=== PATIENT | female | born 1945 | race African-American/Black ===

== ENCOUNTER 2017-03-22 15:48 | Emergency (ER) | payer OTHER ==
[~2017-03-22] VITALS: Ht 162.5 cm; Wt 90.7 kg
[~2017-03-22 15:48] MED LIST: TRAMADOL HCL50 MG PO
[2017-03-22 15:54] VITALS: BP 151/63
[2017-03-22] MEDS ORDERED: MEDROL DOSEPAK4 MG PO (17:04)
== END 2017-03-22 17:07 | disposition home or self-care (01) ==
LOC: ED 15:48
DX: T63.441A Toxic effect of venom of bees, accidental (unintentional), initial encounter (principal); Z88.0 Allergy status to penicillin; Y92.9 Unspecified place or not applicable

== ENCOUNTER 2017-03-27 16:41 | Emergency (ER) | payer OTHER ==
[~2017-03-27] VITALS: Ht 162.5 cm; Wt 90.7 kg
[~2017-03-27 16:41] MED LIST changes: +MEDROL DOSEPAK4 MG PO
[2017-03-27 16:47] VITALS: BP 131/53
[2017-03-27] MEDS ORDERED: NAPROSYN500 MG PO (18:11)
== END 2017-03-27 18:09 | disposition home or self-care (01) ==
LOC: ED 16:41
DX: T14.8XXA Other injury of unspecified body region, initial encounter (principal); M79.671 Pain in right foot; M25.511 Pain in right shoulder; M25.571 Pain in right ankle and joints of right foot; M25.561 Pain in right knee; R03.0 Elevated blood-pressure reading, without diagnosis of hypertension; Z88.0 Allergy status to penicillin; W01.0XXA Fall on same level from slipping, tripping and stumbling without subsequent striking against object, initial encounter; Y93.89 Activity, other specified; Y92.89 Other specified places as the place of occurrence of the external cause; Y99.8 Other external cause status

== ENCOUNTER 2017-04-03 10:02 | Emergency (ER) | payer OTHER ==
[~2017-04-03 10:02] MED LIST changes: +NAPROSYN500 MG PO
[2017-04-03 10:07] VITALS: BP 176/90
[2017-04-03 10:29] LABS: BILIRUBIN NEGATIVE (NEGATIVE); BLOOD 1+ (NEGATIVE); CLARITY SL CLOUDY (CLEAR); COLOR YELLOW (YELLOW); GLUCOSE NEGATIVE (NEGATIVE); KETONE NEGATIVE (NEGATIVE); LEUKO ESTERASE 3+ (NEGATIVE); NITRITE NEGATIVE (NEGATIVE); PH 6.5 (5.0-9.0); UROBILINOGEN 0.2 E.U./dl (0.2-1.0)
[2017-04-03 10:36] LABS: BACTERIA 1+; WBC TNTC wbc/hpf (0-5)
[2017-04-03] MEDS ORDERED: PYRIDIUM200 M1 PO (10:45)
[2017-04-03] MEDS ORDERED: Bactrim DS PO (10:45)
== END 2017-04-03 12:11 | disposition home or self-care (01) ==
LOC: ED 10:02
PROVIDERS: Nurse Practitioner Family
DX: N30.01 Acute cystitis with hematuria (principal); Z88.0 Allergy status to penicillin; Z90.49 Acquired absence of other specified parts of digestive tract; I10 Essential (primary) hypertension; Z90.710 Acquired absence of both cervix and uterus

== ENCOUNTER 2017-04-16 12:52 | Emergency (ER) | payer OTHER, MEDICAID ==
[~2017-04-16] VITALS: Ht 162.5 cm; Wt 92.5 kg
[~2017-04-16 12:52] MED LIST changes: +Bactrim DS PO; +PYRIDIUM200 M1 PO
[2017-04-16 12:58] VITALS: BP 180/82
[2017-04-16 13:26] LABS: BILIRUBIN NEGATIVE (NEGATIVE); BLOOD TRACE-INTACT (NEGATIVE); CLARITY CLEAR (CLEAR); COLOR YELLOW (YELLOW); GLUCOSE NEGATIVE (NEGATIVE); KETONE NEGATIVE (NEGATIVE); LEUKO ESTERASE 1+ (NEGATIVE); NITRITE NEGATIVE (NEGATIVE); PH 6.5 (5.0-9.0); UROBILINOGEN 0.2 E.U./dl (0.2-1.0)
[2017-04-16 13:41] LABS: BACTERIA TRACE
[2017-04-16] MEDS ORDERED: CIPRO500 MG PO (13:57)
== END 2017-04-16 14:29 | disposition home or self-care (01) ==
LOC: ED 12:52
PROVIDERS: Nurse Practitioner Family
DX: S91.332A Puncture wound without foreign body, left foot, initial encounter (principal); N39.0 Urinary tract infection, site not specified; R03.0 Elevated blood-pressure reading, without diagnosis of hypertension; Z90.710 Acquired absence of both cervix and uterus; Z90.49 Acquired absence of other specified parts of digestive tract; Z88.0 Allergy status to penicillin; W22.8XXA Striking against or struck by other objects, initial encounter; Y93.89 Activity, other specified; Y92.89 Other specified places as the place of occurrence of the external cause; Y99.9 Unspecified external cause status

== ENCOUNTER → 2017-08-03 | Outpatient (CLI) | payer OTHER ==
[~2017-08-03] MED LIST changes: +CIPRO500 MG PO
[2017-08-03 13:09] LABS: HEMATOCRIT 34.8 % (37.0-47.0); HEMOGLOBIN 11.4 g/dl (12.0-16.0); MEAN CELL VOLUME 97.5 fl (81.0-99.0); MEAN CORPUSCULAR HGB 31.9 pg (27.0-31.0); MEAN CORPUSCULAR HGB CONC 32.8 g/dl (33.0-37.0); MEAN PLATELET VOLUME 10.7 fl (9.6-12.3); PLATELET COUNT AUTOMATED 226 10*3/uL (130-400); RED BLOOD COUNT 3.57 10*6/uL (4.10-5.10); WHITE BLOOD COUNT 15.8 10*3/uL (4.8-10.8)
[2017-08-03 13:28] LABS: ALBUMIN 2.9 gm/dl (3.1-4.5); BUN 16 mg/dl (7-24); CHLORIDE 110 mmol/L (98-107); CHOLESTEROL 188 mg/dL (<200); CREATININE 0.83 mg/dL (0.55-1.02); POTASSIUM 3.6 mmol/L (3.5-5.1); SGOT/AST 19 IU/L (3-35); SGPT/ALT 21 U/L (12-78); SODIUM 143 mmol/L (136-145); TOTAL PROTEIN 7.3 gm/dL (6.4-8.2); TRIGLYCERIDES 107 mg/dl (<150); VLDL CHOLESTEROL 21 mg/dL (6-40)
[2017-08-03 13:37] LABS: ALKALINE PHOSPHATASE 138 U/L (45-117); HDL CHOLESTEROL 76 mg/dl (40-60); LDL CHOLESTEROL 91 mg/dL (9-159)
[2017-08-03 13:53] LABS: BASOPHILS 1 % (0-1); HOWELL-JOLLY BODIES FEW; PLATELET SUFFICIENCY NORMAL (NORMAL); POLYCHROMASIA SLIGHT; TARGET CELLS FEW; TOTAL CELLS COUNTED 100 #CELLS
[2017-08-05 12:05] LABS: HIV-1 RNA BY PCR <20 (.)
== END | disposition home or self-care (01) ==
LOC: RAD 11:00 → LAB 11:06
PROVIDERS: Internal Medicine
DX: Z13.820 Encounter for screening for osteoporosis (principal); M25.562 Pain in left knee; N95.9 Unspecified menopausal and perimenopausal disorder; I10 Essential (primary) hypertension; E78.2 Mixed hyperlipidemia; M81.0 Age-related osteoporosis without current pathological fracture; B20 Human immunodeficiency virus [HIV] disease; M17.12 Unilateral primary osteoarthritis, left knee; Z90.710 Acquired absence of both cervix and uterus

== ENCOUNTER → 2017-08-20 | Day surgery (SDC) | payer OTHER ==
[~2017-08-20] VITALS: Ht 162.5 cm; Wt 104.3 kg
[~2017-08-20] MED LIST changes: +ATRIPLA TABLET1 EACH PO; +LIPITOR40 MG PO; +VITAMIN D5000 UNIT PO
--- NOTE | ~2017-08-20 | PROC NOTE ---
[place], [place] PROCEDURE NOTE NAME: DAVID AMAYA UNIT #: [id number] ROOM: DOCTOR: CINDY LIMON MD BIRTHDATE: [birth year] DOS: 08/20/2017 PREOPERATIVE DIAGNOSIS: History of colonic polyps. POSTOPERATIVE DIAGNOSIS: Normal colon. PROCEDURE: Colonoscopy. ENDOSCOPIST: Cindy Limon MD METAL OR WOOD BLOCKER: TEA. ANESTHESIA: MAC. INDICATIONS: This is a 72-year-old lady who has a history of previous polyps that were removed on colonoscopies in the past, who is here for a colonoscopy. The procedure and its complications were explained to the patient in detail preoperatively. Complications that were discussed included but were not limited to bleeding, missed lesions and colon perforation. She agreed to proceed. DESCRIPTION OF PROCEDURE: After identifying the patient, the patient was brought to the operating suite and laid in the left lateral position. After time-out procedure was called, IV sedation was administered by the anesthesia team. A digital rectal exam was performed, which was within normal limits. An adult colonoscope was now introduced into the anal canal and advanced sequentially into the rectum, sigmoid colon, descending colon, transverse colon and ascending colon right up to the cecum. Upon reaching the cecum, the scope was withdrawn. Total withdrawal time was approximately 7 minutes. The entire colon was carefully inspected, but there were no polyps or any other lesions that could be visualized. There were uncomplicated internal hemorrhoids that were visualized in the rectum. The scope was then removed and the patient was brought back to the recovery room in stable fashion. There were no complications. Dr. Cindy Limon, the attending endoscopist, was present throughout the operating case. Cindy Limon MD CM:PROCNOTE:PROCEDURE NOTE [id number] CINDY LIMON MD
[2017-08-20 07:10] VITALS: BP 120/72
[2017-08-20 08:24] VITALS: BP 150/87
[2017-08-20 08:36] VITALS: BP 162/84
[2017-08-20 08:51] VITALS: BP 160/72
== END ==
LOC: SDC 08-17 15:30
DX: Z09 Encounter for follow-up examination after completed treatment for conditions other than malignant neoplasm (principal); Z86.010 Personal history of colon polyps; K64.8 Other hemorrhoids; J45.909 Unspecified asthma, uncomplicated; E11.9 Type 2 diabetes mellitus without complications; Z90.710 Acquired absence of both cervix and uterus; Z96.652 Presence of left artificial knee joint; Z98.890 Other specified postprocedural states; Z79.899 Other long term (current) drug therapy; E66.01 Morbid (severe) obesity due to excess calories; Z68.43 Body mass index [BMI] 50.0-59.9, adult; Z86.718 Personal history of other venous thrombosis and embolism
CPT/HCPCS: 00811; G0105

== ENCOUNTER → 2017-09-02 | Outpatient (CLI) | payer OTHER | END | disposition home or self-care (01) | LOC: RAD 12:25 | DX: M17.11 Unilateral primary osteoarthritis, right knee (principal); M47.896 Other spondylosis, lumbar region; M47.897 Other spondylosis, lumbosacral region; M25.512 Pain in left shoulder; G89.29 Other chronic pain; M54.5 Low back pain ==

== ENCOUNTER 2017-12-01 18:48 | Emergency (ER) | payer OTHER ==
[~2017-12-01] VITALS: Wt 103.9 kg
[2017-12-01 19:36] LABS: HEMATOCRIT 37.6 % (37.0-47.0); HEMOGLOBIN 12.4 g/dl (12.0-16.0); MEAN CELL VOLUME 97.9 fl (81.0-99.0); MEAN CORPUSCULAR HGB 32.3 pg (27.0-31.0); MEAN PLATELET VOLUME 11.5 fl (9.6-12.3); PLATELET COUNT AUTOMATED 246 10*3/uL (130-400); RED BLOOD COUNT 3.84 10*6/uL (4.10-5.10); RED CELL DISTRI WIDTH 14.6 % (0-14.5); WHITE BLOOD COUNT 17.2 10*3/uL (4.8-10.8)
[2017-12-01 20:31] LABS: ALBUMIN 3.2 gm/dl (3.1-4.5); BUN 19 mg/dl (7-24); CHLORIDE 110 mmol/L (98-107); POTASSIUM 4.1 mmol/L (3.5-5.1); SGOT/AST 22 IU/L (3-35); SGPT/ALT 22 U/L (12-78); SODIUM 142 mmol/L (136-145); TOTAL PROTEIN 7.6 gm/dL (6.4-8.2)
[2017-12-01 20:32] LABS: BASOPHILS 1 % (0-1); PLATELET SUFFICIENCY NORMAL (NORMAL); TARGET CELLS FEW; TOTAL CELLS COUNTED 100 #CELLS
[2017-12-01 20:37] LABS: ALKALINE PHOSPHATASE 138 U/L (45-117)
[2017-12-01 20:45] LABS: BILIRUBIN NEGATIVE (NEGATIVE); BLOOD NEGATIVE (NEGATIVE); CLARITY SL CLOUDY (CLEAR); COLOR YELLOW (YELLOW); GLUCOSE NEGATIVE (NEGATIVE); KETONE NEGATIVE (NEGATIVE); LEUKO ESTERASE NEGATIVE (NEGATIVE); NITRITE NEGATIVE (NEGATIVE); SPECIFIC GRAVITY <= 1.005 (1.005-1.030); UROBILINOGEN 0.2 E.U./dl (0.2-1.0)
[2017-12-01 20:50] LABS: BACTERIA TRACE; EPITHELIAL CELLS 0-2; WBC 0-2 wbc/hpf (0-5)
[2017-12-01 22:45] VITALS: BP 158/68
== END 2017-12-01 23:35 | disposition home or self-care (01) ==
LOC: ED 18:48
PROVIDERS: Physician Assistant
DX: M54.5 Low back pain (principal); Z90.710 Acquired absence of both cervix and uterus; Z90.49 Acquired absence of other specified parts of digestive tract; Z79.899 Other long term (current) drug therapy; Z88.0 Allergy status to penicillin

== ENCOUNTER → 2017-12-08 | Outpatient (CLI) | payer OTHER ==
[2017-12-09 21:03] LABS: HIV-1 RNA BY PCR 40 (.); LOG10 HIV-1 RNA 1.602 (.)
== END | disposition home or self-care (01) ==
LOC: LAB 02:57 → ORTHO 02:57 → LAB 10:33 → ORTHO 21:55
PROVIDERS: Orthopaedic Surgery
DX: B20 Human immunodeficiency virus [HIV] disease (principal)

== ENCOUNTER → 2017-12-14 | Outpatient (CLI) | payer OTHER | END | disposition home or self-care (01) | LOC: US 12-01 16:00 | DX: R10.9 Unspecified abdominal pain (principal) ==

== ENCOUNTER → 2017-12-24 | Outpatient (CLI) | payer OTHER | END | disposition home or self-care (01) | LOC: MRI 10:00 | DX: M75.101 Unspecified rotator cuff tear or rupture of right shoulder, not specified as traumatic (principal) ==

== ENCOUNTER → 2018-05-10 | Outpatient (CLI) | payer OTHER | END | disposition home or self-care (01) | LOC: US 11:00 | DX: E04.2 Nontoxic multinodular goiter (principal); M79.89 Other specified soft tissue disorders ==

== ENCOUNTER → 2018-07-18 | Outpatient (CLI) | payer OTHER ==
[~2018-07-18] MED LIST changes: +COREG3.125 MG PO; +HYDROCODONE-AC1 EAC1 PO; +LASIX20 MG PO; +LEVAQUIN500 M2 PO; +LEVAQUIN750 M1 PO; +LISINOPRIL10 M1 PO; +OYSTER SHELL C1 EAC2 PO; +OYSTER SHELL C1 EAC6 PO; +PREDNISONE10 MG PO; +PROAIR HFA8.5 GM INH; +TAMIFLU 75MG CA75 MG PO; +TESSALON PERLE100 M1 PO; +VITAMIN D32000 UNI1 PO; +ZITHROMAX250 MG PO; +ZOFRAN4 MG PO
== END | disposition home or self-care (01) ==
LOC: US 13:05
DX: I82.409 Acute embolism and thrombosis of unspecified deep veins of unspecified lower extremity (principal); M79.89 Other specified soft tissue disorders

== ENCOUNTER 2018-08-28 17:34 | Inpatient (IN) | payer OTHER ==
[~2018-08-28] VITALS: Ht 162.6 cm; Wt 100.9 kg
[~2018-08-28 17:34] MED LIST changes: -HYDROCODONE-AC1 EAC1 PO; -LEVAQUIN500 M2 PO; -LEVAQUIN750 M1 PO; -PREDNISONE10 MG PO; -PROAIR HFA8.5 GM INH; -TAMIFLU 75MG CA75 MG PO; -TESSALON PERLE100 M1 PO; -ZOFRAN4 MG PO
[2018-08-28 17:41] VITALS: BP 193/46
[2018-08-28 18:24] LABS: HEMATOCRIT 37.6 % (37.0-47.0); HEMOGLOBIN 12.3 g/dl (12.0-16.0); MEAN CELL VOLUME 97.4 fl (81.0-99.0); MEAN CORPUSCULAR HGB 31.9 pg (27.0-31.0); MEAN CORPUSCULAR HGB CONC 32.7 g/dl (33.0-37.0); MEAN PLATELET VOLUME 11.3 fl (9.6-12.3); PLATELET COUNT AUTOMATED 149 10*3/uL (130-400); RED BLOOD COUNT 3.86 10*6/uL (4.10-5.10); WHITE BLOOD COUNT 16.9 10*3/uL (4.8-10.8)
[2018-08-28 18:47] LABS: ALKALINE PHOSPHATASE 118 U/L (45-117); BUN 22 mg/dl (7-24); CHLORIDE 106 mmol/L (98-107); CREATININE 1.05 mg/dL (0.55-1.02); LIPASE 164 U/L (73-393); POTASSIUM 3.3 mmol/L (3.5-5.1); SGOT/AST 18 IU/L (3-35); SGPT/ALT 19 U/L (12-78); SODIUM 141 mmol/L (136-145); TOTAL PROTEIN 7.7 gm/dL (6.4-8.2)
--- NOTE | 2018-08-28 19:00 | NUR ---
TEMP 100.1, CRYSTAL NOTIFIED PT STATES SHE HAS BODYACHES.
--- NOTE | 2018-08-28 19:01 | NUR ---
DAUGHTER IN LAW STATES TO CALL HER IF NEEDED. [phone]
[2018-08-28 19:11] LABS: PLATELET SUFFICIENCY NORMAL (NORMAL); TOTAL CELLS COUNTED 100 #CELLS
[2018-08-28 19:12] LABS: TARGET CELLS FEW
[2018-08-28] MEDS ORDERED: ZOFRAN4 MG PO (19:59)
[2018-08-28] MEDS ORDERED: TESSALON PERLE100 M1 PO (19:59)
[2018-08-28] MEDS ORDERED: PROAIR HFA8.5 GM INH (19:59)
[2018-08-28 20:43] VITALS: BP 126/47
[2018-08-28 20:51] LABS: BILIRUBIN NEGATIVE (NEGATIVE); BLOOD TRACE-INTACT (NEGATIVE); CLARITY CLEAR (CLEAR); COLOR YELLOW (YELLOW); GLUCOSE NEGATIVE (NEGATIVE); KETONE NEGATIVE (NEGATIVE); LEUKO ESTERASE NEGATIVE (NEGATIVE); NITRITE NEGATIVE (NEGATIVE); PH 5.5 (5.0-9.0); SPECIFIC GRAVITY <= 1.005 (1.005-1.030); UROBILINOGEN 0.2 E.U./dl (0.2-1.0)
--- NOTE | 2018-08-28 21:02 | NUR ---
DAUGHTER PAULA PHONE NUMBER [phone] - OTHER DAUGHTER'S NUMBER
[2018-08-28 21:11] LABS: BACTERIA 1+; EPITHELIAL CELLS 0-2; RBC 0-2 rbc/hpf (0-2); WBC 0-2 wbc/hpf (0-5)
[2018-08-28 21:46] VITALS: BP 138/48
[2018-08-28 22:26] VITALS: BP 142/40
--- NOTE | 2018-08-28 22:26 | NUR ---
Time: 2225 A 73 year old FEMALE admitted to 4E under services of FLEX ZUNIGA DO. Pt. arrived via wheel chair from ER. Chief complaint: CHILLS/SORETHROAT. JARED MAX
--- NOTE | 2018-08-28 22:51 | NUR ---
PATIENT MEDICATED WITH TYLENOL FOR C/O HEADACHE. WILL MONITOR
--- NOTE | 2018-08-28 22:59 | NUR ---
INFORMED THAT HOME MEDICATIONS ARE VERIFIED
--- NOTE | 2018-08-28 23:51 | NUR ---
TYLENOL EFFECTIVE FOR HEADACHE
--- NOTE | 2018-08-29 00:30 | NUR ---
INFORMED THAT PATIENT AWOKEN AND HAD INTENSE SOB, LABOURED BREATHING NOTED WITH AUDIBLE WHEEZING AND DIM T/O LUNG FIELD P.OX STATING 93-94% ROOM AIR. STATES TO PLACE DUONEBS Q4HR PRN. PATIENT PLACED ON 1LPM PER COMFORT. RESP THERAPIST CALLED FOR TREATMENT.
--- NOTE | 2018-08-29 01:00 | NUR ---
DUONEB EFFECITVE. PATIENT RESTING IN BED, RESP ARE ERND ON ROOM AIR P.OX 98% ON 1LPM NC.
--- NOTE | 2018-08-29 02:45 | NUR ---
24 HR chart check completed.
[2018-08-29 06:24] LABS: HEMATOCRIT 34.9 % (37.0-47.0); HEMOGLOBIN 11.3 g/dl (12.0-16.0); MEAN CELL VOLUME 97.5 fl (81.0-99.0); MEAN CORPUSCULAR HGB 31.6 pg (27.0-31.0); MEAN CORPUSCULAR HGB CONC 32.4 g/dl (33.0-37.0); MEAN PLATELET VOLUME 11.2 fl (9.6-12.3); PLATELET COUNT AUTOMATED 147 10*3/uL (130-400); RED BLOOD COUNT 3.58 10*6/uL (4.10-5.10); RED CELL DISTRI WIDTH 14.9 % (0-14.5); WHITE BLOOD COUNT 15.4 10*3/uL (4.8-10.8)
[2018-08-29 06:42] LABS: ALBUMIN 2.6 gm/dl (3.1-4.5); ALKALINE PHOSPHATASE 108 U/L (45-117); BUN 16 mg/dl (7-24); CHLORIDE 112 mmol/L (98-107); CHOLESTEROL 204 mg/dL (<200); FREE T4 1.12 ng/dl (0.76-1.46); HDL CHOLESTEROL 48 mg/dl (40-60); LDL CHOLESTEROL 141 mg/dL (9-159); SGOT/AST 15 IU/L (3-35); SGPT/ALT 16 U/L (12-78); SODIUM 143 mmol/L (136-145); TOTAL PROTEIN 7.1 gm/dL (6.4-8.2); TRIGLYCERIDES 77 mg/dl (<150); VLDL CHOLESTEROL 15 mg/dL (6-40)
[2018-08-29 06:47] LABS: THYROID STIM HORMONE (HS) 0.382 uIU/ml (0.358-4.75)
[2018-08-29 07:30] LABS: ATYPICAL LYMPHS 1 % (0-0); PLATELET SUFFICIENCY NORMAL (NORMAL); TOTAL CELLS COUNTED 100 #CELLS
[2018-08-29 07:31] LABS: TARGET CELLS MODERATE
[2018-08-29 07:54] LABS: VITAMIN D, 25-HYDROXY 23.5 ng/mL (30-100)
[2018-08-29 08:00] VITALS: BP 155/63
--- NOTE | 2018-08-29 08:01 | NUR ---
PT COMPLAINING OF HARSH HACKING COUGH AND SEVERE NASAL CONGESTION. ORDERS RECEIVED.
--- NOTE | 2018-08-29 09:00 | NUR ---
Parliamentary Librarian in to talk to patient. Patient states lives at home with great grandson. There are few steps in the home. Physician: mary cobos [facility]acy: [facility] Home health services: none Patient's level of ADLs: INDEPENDENT Patient has working utilities: all working DME: none Follow-up physician's appointment after d/c: will be made by hospitalist nurse director upon discharge Does patient want to access PORTAL?: no Discharge plan discussed with patient, patient lives at home with great grandson, she states she is independent in adls and ambulation, drives, patient states she will be going home when able and denies any home needs. ALAVRO ABEBE
--- NOTE | 2018-08-29 09:39 | NUR ---
MEDICATED WITH TYLENOL FOR COMPLAINTS OF HEADACHE. ALSO PROVIDED PT TESSALON EMMANUEL FOR COUGH. WILL MONITOR FOR EFFECTIVENESS.
--- NOTE | 2018-08-29 10:26 | NUR ---
DR SHIPLEY'S ANSWERING SERVICE NOTIFIED OF NEW CONSULT.
--- NOTE | 2018-08-29 11:00 | NUR ---
PT STATES EARLIER TYLENOL AND TESSALON PEARLS EFFECTIVE. RESTING MORE COMFORTABLY.
[2018-08-29 12:00] VITALS: BP 124/54
--- NOTE | 2018-08-29 13:58 | NUR ---
PHYSICAL THERAPY Patient reports she has no PT needs. Reports being (I) in room with functional mobility. Declines PT services. Thank you for this referral. Laury Wilkins,PT
--- NOTE | 2018-08-29 16:25 | NUR ---
DR SHILPEY IN TO SEE PT AT THIS TIME.
[2018-08-29 18:00] VITALS: BP 164/70
--- NOTE | 2018-08-29 18:15 | NUR ---
PT PLACED IN PRIVATE ROOM FOR DROPLET PRECAUTIONS PER ORDER.
[2018-08-29 20:00] VITALS: BP 145/66
--- NOTE | 2018-08-29 21:33 | NUR ---
MEDICATED WITH PRN TYLENOL FOR C/O HEADACHE AND TESSALON FOR C/O COUGH, WILL MONITOR
[2018-08-30] VITALS: BP 150/65
--- NOTE | 2018-08-30 04:34 | NUR ---
24 HR chart check completed.
--- NOTE | 2018-08-30 06:06 | NUR ---
PATIENT RESTING IN BED WATCHING TV. NO NEEDS MADE. DENIES PAIN AT THIS TIME. BED IN LOWEST POSITION, CALL LIGHT IN REACH
[2018-08-30 07:08] LABS: HEMATOCRIT 35.5 % (37.0-47.0); HEMOGLOBIN 11.6 g/dl (12.0-16.0); MEAN CELL VOLUME 97.5 fl (81.0-99.0); MEAN CORPUSCULAR HGB 31.9 pg (27.0-31.0); MEAN CORPUSCULAR HGB CONC 32.7 g/dl (33.0-37.0); MEAN PLATELET VOLUME 11.3 fl (9.6-12.3); PLATELET COUNT AUTOMATED 134 10*3/uL (130-400); RED BLOOD COUNT 3.64 10*6/uL (4.10-5.10); RED CELL DISTRI WIDTH 14.9 % (0-14.5); WHITE BLOOD COUNT 14.8 10*3/uL (4.8-10.8)
[2018-08-30 07:30] LABS: BASOPHILS 1 % (0-1); PLATELET SUFFICIENCY NORMAL (NORMAL); TOTAL CELLS COUNTED 100 #CELLS
[2018-08-30 07:37] LABS: BUN 14 mg/dl (7-24); CHLORIDE 108 mmol/L (98-107); SODIUM 140 mmol/L (136-145)
[2018-08-30 07:38] LABS: CREATININE 0.87 mg/dL (0.55-1.02)
[2018-08-30 08:00] VITALS: BP 138/63
[2018-08-30] MEDS ORDERED: TAMIFLU 75MG CA75 MG PO (08:26)
[2018-08-30] MEDS ORDERED: LEVAQUIN750 M1 PO (08:26)
--- NOTE | 2018-08-30 08:51 | NUR ---
MEDICATED WITH TYLENOL FOR COMPLAINTS OF HEADACHE, ALSO TESSALON PEARLS FOR COUGH. WILL MONITOR FOR EFFECTIVENESS.
--- NOTE | 2018-08-30 09:00 | NUR ---
case management visits with patient, patient states she will be going home when able and denies any home needs
--- NOTE | 2018-08-30 13:45 | NUR ---
Discharge instructions reviewed with patient/family. Patient receptive and verbalizes understanding. Follow-up care arranged. Written instructions given to patient/family. IV site removed. Pt transported tolobby via wheelchair. ANN ZARATE
[2018-10-15] MEDS ORDERED: PREDNISONE10 MG PO (11:06)
[2018-10-15] MEDS ORDERED: LASIX20 MG PO (11:06)
[2018-10-15] MEDS ORDERED: LEVAQUIN500 M2 PO (11:10)
[2019-01-20] MEDS ORDERED: HYDROCODONE-AC1 EAC1 PO (14:54)
== END 2018-08-30 13:45 | disposition home or self-care (01) | DRG 871 ==
LOC: ED 17:34 → 4E 21:35 → EDHOLD 21:35 → 4E 22:04
PROVIDERS: Internal Medicine; Physician Assistant; Student in an Organized Health Care Education/Training Program; ADMIT Internal Medicine
DX: A41.9 Sepsis, unspecified organism (principal); E43 Unspecified severe protein-calorie malnutrition; N17.9 Acute kidney failure, unspecified; E86.0 Dehydration; E87.6 Hypokalemia; D64.9 Anemia, unspecified; E53.8 Deficiency of other specified B group vitamins; E55.9 Vitamin D deficiency, unspecified; J45.20 Mild intermittent asthma, uncomplicated; I16.0 Hypertensive urgency; E11.9 Type 2 diabetes mellitus without complications; E78.5 Hyperlipidemia, unspecified; I10 Essential (primary) hypertension; E66.9 Obesity, unspecified; Z96.652 Presence of left artificial knee joint; Z68.38 Body mass index [BMI] 38.0-38.9, adult; Z88.0 Allergy status to penicillin; Z90.49 Acquired absence of other specified parts of digestive tract; Z90.710 Acquired absence of both cervix and uterus; Z90.81 Acquired absence of spleen; Z87.891 Personal history of nicotine dependence; Z80.8 Family history of malignant neoplasm of other organs or systems; Z86.718 Personal history of other venous thrombosis and embolism; Z79.899 Other long term (current) drug therapy; Z21 Asymptomatic human immunodeficiency virus [HIV] infection status

== ENCOUNTER → 2018-09-28 | Outpatient (CLI) | payer OTHER ==
[~2018-09-28] MED LIST changes: +HYDROCODONE-AC1 EAC1 PO; +LEVAQUIN500 M2 PO; +LEVAQUIN750 M1 PO; +PREDNISONE10 MG PO; +PROAIR HFA8.5 GM INH; +TAMIFLU 75MG CA75 MG PO; +TESSALON PERLE100 M1 PO; +ZOFRAN4 MG PO
== END | disposition home or self-care (01) ==
LOC: ORTHO 02:04
DX: M54.2 Cervicalgia (principal)

== ENCOUNTER → 2018-11-01 | Outpatient (CLI) | payer OTHER | END | disposition home or self-care (01) | LOC: US 16:02 | DX: I82.401 Acute embolism and thrombosis of unspecified deep veins of right lower extremity (principal); R60.0 Localized edema; R06.02 Shortness of breath ==

== ENCOUNTER 2019-03-09 13:47 | Inpatient (IN) | payer MEDICARE, OTHER ==
[2019-03-09] VITALS (7 sets, daily range): BP systolic 141–157; BP diastolic 48–71
[~2019-03-09] VITALS: Ht 162.5 cm; Wt 98.4 kg
[2019-03-09 15:05] LABS: HEMATOCRIT 38.3 % (37.0-47.0); HEMOGLOBIN 12.6 g/dl (12.0-16.0); MEAN CELL VOLUME 97.7 fl (81.0-99.0); MEAN CORPUSCULAR HGB 32.1 pg (27.0-31.0); MEAN CORPUSCULAR HGB CONC 32.9 g/dl (33.0-37.0); MEAN PLATELET VOLUME 11.3 fl (9.6-12.3); PLATELET COUNT AUTOMATED 176 10*3/uL (130-400); RED BLOOD COUNT 3.92 10*6/uL (4.10-5.10); RED CELL DISTRI WIDTH 14.6 % (0-14.5); WHITE BLOOD COUNT 13.9 10*3/uL (4.8-10.8)
[2019-03-09 15:18] LABS: ACT PARTIAL THROMBO TIME 25.8 SECONDS (20.0-32.1)
[2019-03-09 15:23] LABS: ALKALINE PHOSPHATASE 130 U/L (45-117); BUN 13 mg/dl (7-24); CHLORIDE 111 mmol/L (98-107); CREATININE 0.84 mg/dL (0.55-1.02); LIPASE 205 U/L (73-393); POTASSIUM 3.2 mmol/L (3.5-5.1); SGOT/AST 18 IU/L (3-35); SGPT/ALT 18 U/L (12-78); SODIUM 141 mmol/L (136-145); TOTAL PROTEIN 7.1 gm/dL (6.4-8.2)
[2019-03-09 15:32] LABS: TOTAL CELLS COUNTED 100 #CELLS
[2019-03-09 15:33] LABS: TARGET CELLS FEW
[2019-03-09 15:34] LABS: MORPHOLOGY COMMENT COMMENT:; PLATELET SUFFICIENCY NORMAL (NORMAL)
[2019-03-09] MEDS ORDERED: LISINOPRIL20 MG PO (17:14)
--- NOTE | 2019-03-09 19:45 | NUR ---
A 73, admitted to , under the services of PHILLY Lin DO with a diagnosis of APPENDECTOMY. Chief complaint is S/P APPENDECTOMY. Patient arrived via stretcher from ER. Monitor applied. Initial assessment completed. Vital signs taken and recorded. PHILLY LIN DO notified of admission to the unit. Orders received. See assessment for past medical history, medications and allergies. Patient and/or family oriented to unit. [facility] visitation policy reviewed. Clothing/patient valuable form completed. RICHAR VARNER
--- NOTE | 2019-03-09 20:23 | NUR ---
PATIENT MEDICATED WITH MORPHINE PER PRN ORDER FOR C/O LOWER ABDOMINAL PAIN. RATED PAIN A 10/10 WITH 10 BEING THE WORST. SEE EMAR. REINFORCED USE OF CALL LIGHT. DTR AT BEDSIDE.
--- NOTE | 2019-03-09 21:00 | NUR ---
PATIENT PLACED ON HYPOTHERMIA BLANKET. SPAKE WITH RESIDENT ABOUT LOW TEMPS 94.8 RECTAL.
--- NOTE | 2019-03-09 21:15 | NUR ---
PATIENT RESTING QUIETLY. DTR AT BEDSIDE. PERMISSION FROM ACCOUNTS PAYABLE SPECIALIST RECEIVED FOR DTR TO STAY WITH PATIENT. DTR HAD A VERY CALMING EFFECT ON PATIENT AND INCREASED HER LEVEL OF COMFORT. PATIENT WAS ANXIOUS DUE HER LOW TEMP AND BEING ON WARMING BLANKET
[2019-03-10] VITALS: BP 148/61
--- NOTE | 2019-03-10 03:00 | NUR ---
HYPOTHERMIA BLANKET PLACED ON MONITOR. TEMP NOW 99.2
--- NOTE | 2019-03-10 03:08 | NUR ---
PATIENT MEDICATED SLOWLY WITH MORPHINE FOR C/O SURGICAL PAIN. RATED PAIN A 7/10 WITH 10 BEING THE WORST. SEE EMAR. REINFORCED USE OF CALL LIGHT.
[2019-03-10 03:52] LABS: BILIRUBIN NEGATIVE (NEGATIVE); BLOOD NEGATIVE (NEGATIVE); CLARITY CLEAR (CLEAR); COLOR YELLOW (YELLOW); GLUCOSE NEGATIVE (NEGATIVE); KETONE NEGATIVE (NEGATIVE); LEUKO ESTERASE NEGATIVE (NEGATIVE); NITRITE NEGATIVE (NEGATIVE); PH 6.5 (5.0-9.0); UROBILINOGEN 0.2 E.U./dl (0.2-1.0)
[2019-03-10 04:02] LABS: BACTERIA TRACE; WBC 0-2 wbc/hpf (0-5)
--- NOTE | 2019-03-10 04:30 | NUR ---
PATIENT RESTING QUIETLY . NO FURTHER C/O VOICED.
[2019-03-10 06:30] LABS: HEMATOCRIT 36.4 % (37.0-47.0); HEMOGLOBIN 12.1 g/dl (12.0-16.0); MEAN CELL VOLUME 95.8 fl (81.0-99.0); MEAN CORPUSCULAR HGB 31.8 pg (27.0-31.0); MEAN CORPUSCULAR HGB CONC 33.2 g/dl (33.0-37.0); MEAN PLATELET VOLUME 11.7 fl (9.6-12.3); PLATELET COUNT AUTOMATED 179 10*3/uL (130-400); RED CELL DISTRI WIDTH 14.3 % (0-14.5); WHITE BLOOD COUNT 14.5 10*3/uL (4.8-10.8)
[2019-03-10 06:37] LABS: BUN 9 mg/dl (7-24); CHLORIDE 111 mmol/L (98-107); CREATININE 0.78 mg/dL (0.55-1.02); POTASSIUM 3.7 mmol/L (3.5-5.1); SODIUM 139 mmol/L (136-145)
[2019-03-10 07:00] LABS: ATYPICAL LYMPHS 4 % (0-0); TOTAL CELLS COUNTED 100 #CELLS
[2019-03-10 07:01] LABS: PLATELET SUFFICIENCY NORMAL (NORMAL)
[2019-03-10 07:02] LABS: BURR CELLS FEW
[2019-03-10 07:03] LABS: ROULEAUX MODERATE
--- NOTE | 2019-03-10 07:10 | NUR ---
DAVID AMAYA [id number] Please refer to the physician's history and physical for past medical history, comorbid conditions, and allergies. Diagnosis: APPENDICITIS Abdoul Score: 17,AT RISK WOUND DESCRIPTIONS: Wound Number: 1 Location of the wound: umbilicus Type of wound: surgical Thickness: Partial Size: 0.3cm x 3.5cm x <0.1cm Tunneling: none Undermining: none Sinus Tract: none Presence of Exudate: none Amount: None Color: Brown Odor: None Periwound Skin Appearance: Normal Wound edges: approximated with glue Pain (associated with wound): none at time of assessment How does patient state this happened? pt stated she had surgery yesterday Wound Number: 2 Location of the wound: left middle abdomen Type of wound: surgical Thickness: Partial Size: 0.5cm x 2.8cm x <0.1cm Tunneling: none Undermining: none Sinus Tract: none Presence of Exudate: none Amount: None Color: Brown Odor: None Periwound Skin Appearance: Normal Wound edges: approximated with glue Pain (associated with wound): none at time of assessment How does patient state this happened? pt stated she had surgery yesterday Wound Number: 3 Location of the wound: middle of lower abdomen Type of wound: surgical Thickness: Partial Size: 0.5cm x 1.0cm x <0.1cm Tunneling: none Undermining: none Sinus Tract: none Presence of Exudate: none Amount: None Color: Brown Odor: None Periwound Skin Appearance: Normal Wound edges: approximated with glue Pain (associated with wound): none at time of assessment How does patient state this happened? pt stated she had surgery yesterday Surface the patient is resting on: Isoflex SKIN PREVENTION RECOMMENDATION: 1. Pressure redistribution support surface as appropriate 2. Elevate heels 3. Remove boots/TEDS every shift and reapply 4. Head of bed 30 degrees as tolerated 5. Assess nutrition and hydration 6. Manage moisture 7. Avoid the use of containment devices while in bed 8. Use absorptive products on surfaces limit layers of linens on bed 9. Turn and reposition every 1-2 hours in bed and every 1 hour in chair as tolerated 10. Weight shifts every 15 minutes while up in chair 11. Offloading with pillows or device to keep heels elevated off bed 12. Monitor skin at least every shift 13. Inspect under medical devices twice a day
[2019-03-10 08:00] VITALS: BP 148/56
--- NOTE | 2019-03-10 08:54 | NUR ---
PT'S DAUGHTER INQUIRING ABOUT HER HAVING AN ADVANCED DIET, CALL PLACED TO DR OCONNOR, STATES PT MAY HAVE REGULAR DIET.
--- NOTE | 2019-03-10 09:25 | NUR ---
MEDICATED WITH NORCO PER PRN ORDER FOR COMPLAINTS OF ABDOMINAL PAIN, RATES PAIN 8/10. WILL MONITOR FOR EFFECTIVENESS.
--- NOTE | 2019-03-10 11:00 | NUR ---
PT RESTING IN BED, STATES EARLIER NORCO EFFECTIVE FOR ABD PAIN.
[2019-03-10 12:00] VITALS: BP 141/52
--- NOTE | 2019-03-10 12:10 | NUR ---
Nutritional Support Services Note: S/p appendectomy. Ht.5'4 Wt.[id number]#. Regular diet as ordered. Appetite is good. Stressed importance of adequate protein and calorie intake to promote healing. No other nutrition intervention needed at this time. Will follow as needed. Maureen Orourke Rdn Ld
[2019-03-10] MEDS ORDERED: NORCO 5-325 TA1 EACH PO (12:38)
--- NOTE | 2019-03-10 15:18 | NUR ---
PT UP IN CHAIR, COMPLAINING OF ABD PAIN, RATES PAIN 8/10. MEDICATED WITH NORCO PER PRN ORDER. WILL MONITOR FOR EFFECTIVENESS.
[2019-03-10 16:00] VITALS: BP 135/61
--- NOTE | 2019-03-10 16:44 | NUR ---
PT RESTING MORE COMFORTABLY, EARLIER NORCO HELPED WITH ABD PAIN,
--- NOTE | 2019-03-10 17:48 | NUR ---
MEDICATED WITH MORPHINE PER PRN ORDER FOR COMPLAINTS OF ABD PAIN, PT STATES SHE WAS UP TO BSC AND PAIN REMAINS AT 7/10. WILL MONITOR FOR EFFECTIVENESS.
[2019-03-10 20:00] VITALS: BP 114/84
[2019-03-11] VITALS: BP 166/56
[2019-03-11 06:18] LABS: HEMOGLOBIN 10.9 g/dl (12.0-16.0); MEAN CELL VOLUME 96.2 fl (81.0-99.0); MEAN CORPUSCULAR HGB 31.8 pg (27.0-31.0); MEAN PLATELET VOLUME 11.3 fl (9.6-12.3); PLATELET COUNT AUTOMATED 174 10*3/uL (130-400); RED BLOOD COUNT 3.43 10*6/uL (4.10-5.10); RED CELL DISTRI WIDTH 14.1 % (0-14.5); WHITE BLOOD COUNT 15.4 10*3/uL (4.8-10.8)
[2019-03-11 06:37] LABS: BUN 8 mg/dl (7-24); CHLORIDE 107 mmol/L (98-107); CREATININE 0.75 mg/dL (0.55-1.02); POTASSIUM 3.3 mmol/L (3.5-5.1); SODIUM 138 mmol/L (136-145)
[2019-03-11 07:41] LABS: PLATELET SUFFICIENCY NORMAL (NORMAL); TARGET CELLS FEW; TOTAL CELLS COUNTED 100 #CELLS
[2019-03-11 08:00] VITALS: BP 110/58
--- NOTE | 2019-03-11 10:20 | NUR ---
PT COMPLAINED OF GENERALIZED PAIN RATED 7/10. POSTOPERATIVE DISCOMFORT. INCISIONS CLEAN AND DRY. NO ACTIVE BLEEDING. MEDICATED WITH NORCO ORDERED. ZULEYKA VACA OVBC-SN / JOHNNY BOUDREAUX BSN CLINICAL INSTRUCTOR.
[2019-03-11 12:00] VITALS: BP 91/58
--- NOTE | 2019-03-11 13:13 | NUR ---
PT SITTING UP IN CHAIR. VOICED PAIN MEDICATION EFFECTIVE FOR PAIN. CALL LIGHT IN REACH. ZULEYKA VACA OVCT SN / JOHNNY BOUDREAUX BSM CLINICAL INSTRUCTOR
--- NOTE | 2019-03-11 14:57 | NUR ---
Discharge instructions reviewed with patient/family. Patient receptive and verbalizes understanding. Follow-up care arranged. Written instructions given to patient/family. GRAZYNA MUNOZ
== END 2019-03-11 14:57 | disposition home or self-care (01) | DRG 342 ==
LOC: ED 13:47 → 4E 15:15 → EDHOLD 15:15 → 4E 15:46
PROVIDERS: Internal Medicine; Nurse Practitioner; Student in an Organized Health Care Education/Training Program; ADMIT Internal Medicine
PROC: 0DTJ4ZZ Resection of Appendix, Percutaneous Endoscopic Approach (ICD-10-PCS; principal; 2019-03-10)
DX: K35.20 Acute appendicitis with generalized peritonitis, without abscess (principal); B20 Human immunodeficiency virus [HIV] disease; I50.22 Chronic systolic (congestive) heart failure; E44.0 Moderate protein-calorie malnutrition; J45.909 Unspecified asthma, uncomplicated; E11.9 Type 2 diabetes mellitus without complications; I11.0 Hypertensive heart disease with heart failure; E78.5 Hyperlipidemia, unspecified; Z96.652 Presence of left artificial knee joint; E87.6 Hypokalemia; R00.1 Bradycardia, unspecified; Z68.37 Body mass index [BMI] 37.0-37.9, adult; Z86.718 Personal history of other venous thrombosis and embolism; Z90.81 Acquired absence of spleen; Z87.891 Personal history of nicotine dependence; Z90.49 Acquired absence of other specified parts of digestive tract; Z90.710 Acquired absence of both cervix and uterus; Z79.899 Other long term (current) drug therapy; Z88.0 Allergy status to penicillin; Z80.8 Family history of malignant neoplasm of other organs or systems; Z83.1 Family history of other infectious and parasitic diseases

== ENCOUNTER 2019-03-18 10:08 | Emergency (ER) | payer MEDICARE, OTHER ==
[~2019-03-18] VITALS: Ht 162.5 cm; Wt 98.4 kg
[~2019-03-18 10:08] MED LIST changes: +LISINOPRIL20 MG PO; +NORCO 5-325 TA1 EACH PO
[2019-03-18 10:51] LABS: BILIRUBIN NEGATIVE (NEGATIVE); BLOOD 3+ (NEGATIVE); CLARITY CLOUDY (CLEAR); COLOR YELLOW (YELLOW); GLUCOSE NEGATIVE (NEGATIVE); KETONE NEGATIVE (NEGATIVE); LEUKO ESTERASE 2+ (NEGATIVE); NITRITE POSITIVE (NEGATIVE); PH 6.5 (5.0-9.0); UROBILINOGEN 0.2 E.U./dl (0.2-1.0)
[2019-03-18 11:02] LABS: BACTERIA 2+; RBC 41-50 rbc/hpf (0-2); WBC TNTC wbc/hpf (0-5)
[2019-03-18 11:12] LABS: HEMATOCRIT 34.7 % (37.0-47.0); HEMOGLOBIN 11.3 g/dl (12.0-16.0); MEAN CELL VOLUME 96.4 fl (81.0-99.0); MEAN CORPUSCULAR HGB 31.4 pg (27.0-31.0); MEAN CORPUSCULAR HGB CONC 32.6 g/dl (33.0-37.0); MEAN PLATELET VOLUME 10.6 fl (9.6-12.3); PLATELET COUNT AUTOMATED 226 10*3/uL (130-400); RED CELL DISTRI WIDTH 13.8 % (0-14.5); WHITE BLOOD COUNT 14.5 10*3/uL (4.8-10.8)
[2019-03-18 11:26] LABS: ALBUMIN 2.8 gm/dl (3.1-4.5); ALKALINE PHOSPHATASE 112 U/L (45-117); BUN 13 mg/dl (7-24); CHLORIDE 109 mmol/L (98-107); CREATININE 0.85 mg/dL (0.55-1.02); POTASSIUM 3.3 mmol/L (3.5-5.1); SGOT/AST 15 IU/L (3-35); SGPT/ALT 15 U/L (12-78); SODIUM 140 mmol/L (136-145)
[2019-03-18 11:32] LABS: HOWELL-JOLLY BODIES FEW; OVALOCYTES FEW; PLATELET SUFFICIENCY NORMAL (NORMAL); TARGET CELLS FEW; TOTAL CELLS COUNTED 100 #CELLS
[2019-03-18 11:33] LABS: BURR CELLS FEW
[2019-03-18 15:09] VITALS: BP 140/70
[2019-03-18] MEDS ORDERED: KEFLEX500 M1 PO (16:06)
== END 2019-03-18 16:10 | disposition home or self-care (01) ==
LOC: ED 10:08
PROVIDERS: Nurse Practitioner
DX: N39.0 Urinary tract infection, site not specified (principal); R06.02 Shortness of breath; R05 Cough; E66.9 Obesity, unspecified; Z87.891 Personal history of nicotine dependence; Z79.899 Other long term (current) drug therapy; Z88.0 Allergy status to penicillin

== ENCOUNTER 2019-05-30 11:15 | Emergency (ER) | payer MEDICARE, OTHER ==
[~2019-05-30] VITALS: Ht 162.5 cm; Wt 95.3 kg
[~2019-05-30 11:15] MED LIST changes: +KEFLEX500 M1 PO
[2019-05-30 11:56] LABS: HEMATOCRIT 38.1 % (37.0-47.0); HEMOGLOBIN 12.5 g/dl (12.0-16.0); MEAN CELL VOLUME 97.7 fl (81.0-99.0); MEAN CORPUSCULAR HGB 32.1 pg (27.0-31.0); MEAN CORPUSCULAR HGB CONC 32.8 g/dl (33.0-37.0); NUCLEATED RED BLOOD CELL 0.1 % (0.0-0.0); PLATELET COUNT AUTOMATED 261 10*3/uL (130-400); RED CELL DISTRI WIDTH 15.1 % (0-14.5); WHITE BLOOD COUNT 14.2 10*3/uL (4.8-10.8)
[2019-05-30 12:07] LABS: ACT PARTIAL THROMBO TIME 23.5 SECONDS (20.0-32.1); INTERNATIONAL NORM RATIO 0.9 (2.0-3.5)
[2019-05-30 12:15] LABS: ALKALINE PHOSPHATASE 152 U/L (45-117); BUN 22 mg/dl (7-24); CHLORIDE 113 mmol/L (98-107); CREATININE 0.87 mg/dL (0.55-1.02); POTASSIUM 3.6 mmol/L (3.5-5.1); SGOT/AST 20 IU/L (3-35); SGPT/ALT 24 U/L (12-78); SODIUM 143 mmol/L (136-145); TOTAL PROTEIN 7.7 gm/dL (6.4-8.2)
[2019-05-30 12:19] LABS: BASOPHILS 2 % (0-1); TOTAL CELLS COUNTED 100 #CELLS
[2019-05-30 12:20] LABS: HOWELL-JOLLY BODIES FEW; PLATELET SUFFICIENCY NORMAL (NORMAL); TARGET CELLS FEW
[2019-05-30 12:22] LABS: TROPONIN I < 0.015 ng/ml (<0.045)
[2019-05-30 13:08] VITALS: BP 178/68
[2019-05-30 14:47] LABS: BILIRUBIN NEGATIVE (NEGATIVE); BLOOD NEGATIVE (NEGATIVE); CLARITY CLEAR (CLEAR); COLOR YELLOW (YELLOW); GLUCOSE NEGATIVE (NEGATIVE); KETONE NEGATIVE (NEGATIVE); LEUKO ESTERASE NEGATIVE (NEGATIVE); NITRITE NEGATIVE (NEGATIVE); SPECIFIC GRAVITY 1.015 (1.005-1.030); UROBILINOGEN 0.2 E.U./dl (0.2-1.0)
[2019-05-30 15:03] LABS: EPITHELIAL CELLS 0-2
[2019-05-30] MEDS ORDERED: NORCO 5-325 TA1 EACH PO (16:21)
== END 2019-05-30 16:33 | disposition home or self-care (01) ==
LOC: ED 11:15
PROVIDERS: Emergency Medicine; Nurse Practitioner Family
DX: M25.511 Pain in right shoulder (principal); R07.89 Other chest pain; R06.02 Shortness of breath; R61 Generalized hyperhidrosis; J45.909 Unspecified asthma, uncomplicated; Z90.710 Acquired absence of both cervix and uterus; Z90.49 Acquired absence of other specified parts of digestive tract; M79.89 Other specified soft tissue disorders; Z88.0 Allergy status to penicillin; Z79.899 Other long term (current) drug therapy; Z79.2 Long term (current) use of antibiotics; Z87.891 Personal history of nicotine dependence

== ENCOUNTER → 2019-06-15 | Outpatient (CLI) | payer MEDICARE, OTHER | END | disposition home or self-care (01) | LOC: RAD 14:39 | DX: M25.511 Pain in right shoulder (principal); M75.101 Unspecified rotator cuff tear or rupture of right shoulder, not specified as traumatic ==

== ENCOUNTER → 2019-06-23 | Outpatient (CLI) | payer MEDICARE, OTHER | END | disposition home or self-care (01) | LOC: MRI 06-22 10:00 | DX: M89.311 Hypertrophy of bone, right shoulder (principal); M50.223 Other cervical disc displacement at C6-C7 level ==

== ENCOUNTER → 2020-05-14 | Outpatient (CLI) | payer OTHER ==
[~2020-05-14] MED LIST changes: +TESSALON PERLE100 MG PO
== END | disposition home or self-care (01) ==
LOC: US 10:30
PROVIDERS: ATTEND Podiatrist
DX: R22.43 Localized swelling, mass and lump, lower limb, bilateral (principal); M79.606 Pain in leg, unspecified

== ENCOUNTER 2020-05-25 15:00 | Emergency (ER) | payer OTHER ==
[~2020-05-25] VITALS: Ht 162.5 cm; Wt 104.3 kg
[~2020-05-25 15:00] MED LIST changes: -TESSALON PERLE100 MG PO
[2020-05-25 15:35] VITALS: BP 113/53
[2020-05-25 16:44] LABS: MEAN CELL VOLUME 95.5 fl (81.0-99.0); MEAN CORPUSCULAR HGB 31.2 pg (27.0-31.0); MEAN CORPUSCULAR HGB CONC 32.6 g/dl (33.0-37.0); MEAN PLATELET VOLUME 11.5 fl (9.6-12.3); PLATELET COUNT AUTOMATED 97 10*3/uL (130-400); RED BLOOD COUNT 3.98 10*6/uL (4.10-5.10); RED CELL DISTRI WIDTH 14.6 % (0-14.5); WHITE BLOOD COUNT 11.2 10*3/uL (4.8-10.8)
[2020-05-25 17:02] LABS: ACT PARTIAL THROMBO TIME 27.6 SECONDS (20.0-32.1)
[2020-05-25 17:26] LABS: BASOPHILS 1 % (0-1); TOTAL CELLS COUNTED 100 #CELLS
[2020-05-25 17:27] LABS: PLATELET SUFFICIENCY LOW (NORMAL)
[2020-05-25 17:35] LABS: ALBUMIN 2.8 gm/dl (3.1-4.5); ALKALINE PHOSPHATASE 118 U/L (45-117); BUN 15 mg/dl (7-24); CHLORIDE 112 mmol/L (98-107); CREATININE 0.93 mg/dL (0.55-1.02); POTASSIUM 3.9 mmol/L (3.5-5.1); SGOT/AST 24 IU/L (3-35); SGPT/ALT 17 U/L (12-78); SODIUM 140 mmol/L (136-145); TOTAL PROTEIN 7.4 gm/dL (6.4-8.2)
[2020-05-25 17:42] LABS: TROPONIN I < 0.015 ng/ml (<0.045)
[2020-05-25] MEDS ORDERED: TESSALON PERLE100 MG PO (18:08)
== END 2020-05-25 18:33 | disposition home or self-care (01) ==
LOC: ED 15:00
PROVIDERS: Emergency Medicine
DX: U07.1 COVID-19 (principal); J40 Bronchitis, not specified as acute or chronic; E66.9 Obesity, unspecified; E11.9 Type 2 diabetes mellitus without complications; I11.0 Hypertensive heart disease with heart failure; I50.9 Heart failure, unspecified; E78.5 Hyperlipidemia, unspecified; Z88.0 Allergy status to penicillin; Z79.899 Other long term (current) drug therapy; Z79.2 Long term (current) use of antibiotics; Z68.37 Body mass index [BMI] 37.0-37.9, adult; Z90.49 Acquired absence of other specified parts of digestive tract; Z90.711 Acquired absence of uterus with remaining cervical stump; Z96.652 Presence of left artificial knee joint; Z87.891 Personal history of nicotine dependence

== ENCOUNTER → 2020-08-12 | Outpatient (CLI) | payer OTHER ==
[~2020-08-12] MED LIST changes: +TESSALON PERLE100 MG PO
== END | disposition home or self-care (01) ==
LOC: COVID19 13:45
PROVIDERS: ATTEND Surgery Vascular Surgery
DX: Z01.812 Encounter for preprocedural laboratory examination (principal); Z20.822 Contact with and (suspected) exposure to COVID-19

== ENCOUNTER → 2020-08-19 | Outpatient (CLI) | payer OTHER | END | disposition home or self-care (01) | LOC: COVID19 13:52 | PROVIDERS: ATTEND Surgery Vascular Surgery | DX: Z01.812 Encounter for preprocedural laboratory examination (principal); Z20.822 Contact with and (suspected) exposure to COVID-19 ==

== ENCOUNTER → 2020-09-02 | Outpatient (CLI) | payer OTHER ==
[2020-09-02 13:01] LABS: HEMATOCRIT 35.4 % (37.0-47.0); MEAN CORPUSCULAR HGB 31.8 pg (27.0-31.0); MEAN CORPUSCULAR HGB CONC 32.8 g/dl (33.0-37.0); MEAN PLATELET VOLUME 10.9 fl (9.6-12.3); PLATELET COUNT AUTOMATED 265 10*3/uL (130-400); RED BLOOD COUNT 3.65 10*6/uL (4.10-5.10); RED CELL DISTRI WIDTH 14.7 % (0-14.5); WHITE BLOOD COUNT 13.3 10*3/uL (4.8-10.8)
[2020-09-02 13:54] LABS: TOTAL CELLS COUNTED 100 #CELLS
[2020-09-02 13:55] LABS: PLATELET SUFFICIENCY NORMAL (NORMAL); POLYCHROMASIA SLIGHT; TARGET CELLS FEW
[2020-09-03 07:05] LABS: HEMATOCRIT 35.1 % (34.0-46.6); HEMOGLOBIN 11.8 g/dL (11.1-15.9); RBC 3.69 x10E6/uL (3.77-5.28)
[2020-09-03 12:07] LABS: ABSOLUTE CD 4 HELPER 2374 /uL (359-1519); CD 4 POS LYMPH, % 25.8 % (30.8-58.5)
[2020-09-04 00:06] LABS: HIV-1 RNA BY PCR <20 (.)
== END | disposition home or self-care (01) ==
LOC: LAB 12:19
PROVIDERS: ATTEND Family Medicine
DX: I10 Essential (primary) hypertension (principal); R30.0 Dysuria; R53.83 Other fatigue; E78.2 Mixed hyperlipidemia

== ENCOUNTER → 2021-03-19 | Outpatient (CLI) | payer OTHER | END | disposition home or self-care (01) | LOC: CT 07:48 | PROVIDERS: ATTEND Family Medicine | DX: R91.1 Solitary pulmonary nodule (principal) ==

== ENCOUNTER → 2021-03-31 | Outpatient (CLI) | payer OTHER | END | disposition home or self-care (01) | LOC: MAMMO 03-10 10:30 → COVID19 00:55 → MAMMO 00:55 → LAB 00:55 → MAMMO 07:30 | PROVIDERS: ATTEND Family Medicine | DX: Z12.31 Encounter for screening mammogram for malignant neoplasm of breast (principal); N64.89 Other specified disorders of breast; Z20.822 Contact with and (suspected) exposure to COVID-19 ==

== ENCOUNTER → 2021-06-16 | Outpatient (CLI) | payer OTHER | END | disposition home or self-care (01) | LOC: COVID19 16:51 | PROVIDERS: ATTEND Internal Medicine | DX: Z11.52 Encounter for screening for COVID-19 (principal) ==

== ENCOUNTER 2021-07-21 20:36 | Emergency (ER) | payer OTHER ==
[~2021-07-21] VITALS: Ht 170.1 cm; Wt 90.7 kg
[2021-07-21 20:45] VITALS: BP 142/50
[2021-07-21] MEDS ORDERED: METHOCARBAMOL500 M1 PO (23:08)
[2021-07-21] MEDS ORDERED: PREDNISONE20 M1 PO (23:08)
== END 2021-07-21 23:21 | disposition home or self-care (01) ==
LOC: ED 20:36
DX: M43.6 Torticollis (principal); Z88.0 Allergy status to penicillin; Z79.899 Other long term (current) drug therapy; Z90.49 Acquired absence of other specified parts of digestive tract; Z90.710 Acquired absence of both cervix and uterus; Z98.890 Other specified postprocedural states; Z87.891 Personal history of nicotine dependence

== ENCOUNTER → 2021-08-06 | Outpatient (CLI) | payer OTHER ==
[~2021-08-06] MED LIST changes: +GENVOYA TABLET1 EACH PO; +METHOCARBAMOL500 M1 PO; +PREDNISONE20 M1 PO
== END | disposition home or self-care (01) ==
LOC: CARD 00:07
PROVIDERS: ATTEND Internal Medicine Cardiovascular Disease
DX: R07.2 Precordial pain (principal); R07.89 Other chest pain